=== PATIENT | male | born 1970 | race Caucasian/White ===

== ENCOUNTER 2021-12-20 15:51 | Emergency (ER) | payer OTHER, MEDICAID ==
[~2021-12-20] VITALS: Ht 180.3 cm; Wt 100.0 kg
[2021-12-20 15:58] VITALS: BP 136/87
[2021-12-20] MEDS ORDERED: MAGNESIUM/ALUMINUM HYDROXIDE/SIMETHICONE 30ML UDC PO STA (16:25)
[2021-12-20] MEDS ORDERED: VISCOUS LIDOCAINE 2% 15 ML UDC MM ONE (16:30)
[2021-12-20] MEDS ORDERED: OMEP20CA14 MT (17:16)
== END 2021-12-20 18:13 | disposition home or self-care (01) ==
LOC: ER 15:51
DX: K21.9 Gastro-esophageal reflux disease without esophagitis (principal)
CPT/HCPCS: 99283

== ENCOUNTER 2022-06-11 16:34 | Emergency (ER) | payer OTHER, MEDICAID ==
[~2022-06-11] VITALS: Ht 177.8 cm; Wt 65.0 kg
[~2022-06-11 16:34] MED LIST: OMEP20CA14 MT
[2022-06-11] MEDS ORDERED: IBUPROFEN 600MG TABLET PO ONE (17:00)
[2022-06-11] MEDS ORDERED: ACET-2708 MT (18:29)
[2022-06-11 20:22] VITALS: BP 126/68
== END 2022-06-11 20:23 | disposition home or self-care (01) ==
LOC: ER 16:34
DX: S90.122A Contusion of left lesser toe(s) without damage to nail, initial encounter (principal); X58.XXXA Exposure to other specified factors, initial encounter; Y93.9 Activity, unspecified; Y92.89 Other specified places as the place of occurrence of the external cause; Y99.8 Other external cause status
CPT/HCPCS: 73630; 99283